=== PATIENT | female | born 1965 | race Caucasian/White ===

== ENCOUNTER 2024-05-09 13:39 | Outpatient (CLI) | payer OTHER, SELFPAY ==
--- NOTE | ~2024-05-09 | US_ITS ---
EXAMINATION: US pelvic complete w TV DATE: 05/09/2024 14:22 INDICATION: Menorrhagia TECHNIQUE: Multiple transabdominal and endovaginal sonographic images of the pelvis were obtained. COMPARISON: None. FINDINGS: The uterus measures 9.2 x 4.2 x 4.8 cm. The endometrial complex measures 4 mm in thickness. The righ t ovary measures 3.5 x 2.7 x 2.4 cm. The left ovary measures 2.3 x 1.8 x 1.3 cm. There are bilateral anechoic ovarian cysts measuring 2.3 similar on the right and 1.4 cm on the left. Vascular flow ident ified at both ovaries on color Doppler. There is no free fluid in the pelvis. IMPRESSION: 1. Normal pelvic ultrasound. Reviewed, dictated and finalized at location A. E OPERATOR
== END 2024-05-09 13:40 | disposition home or self-care (01) ==
PROVIDERS: PCP Obstetrics & Gynecology
DX: N92.0 Excessive and frequent menstruation with regular cycle (principal)
CPT/HCPCS: 76830; 76856